=== PATIENT | male | born 1980 | race Caucasian/White ===

== ENCOUNTER 2017-05-08 14:03 | Emergency (ER) | payer MEDICAID ==
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
[~2017-05-08 14:03] MED LIST: ASPIRIN81 M1 PO; ATIVAN PO; BAYER ASPIRIN325 M1 PO; FLEXERIL10 MG PO; KEFLEX500 MG PO; LORTAB 5-325 M1 EACH PO; NICODERM C1 PATCH .1 TD; NO MEDICATIONS; OMEPRAZOLE40 MG PO; PHENERGAN25 MG PO; PREDNISONE10 MG/DOSE PO; VIBRAMYCIN100 M1 PO; VOLTAREN50 MG PO; ZOFRAN ODT4 MG PO
[2017-05-08] MEDS ORDERED: NO MEDICATIONS (17:01)
== END 2017-05-08 20:05 | disposition home or self-care (01) ==
LOC: CED 14:03
DX: S02.612A Fracture of condylar process of left mandible, initial encounter for closed fracture (principal); S02.2XXA Fracture of nasal bones, initial encounter for closed fracture; F17.200 Nicotine dependence, unspecified, uncomplicated; Y04.2XXA Assault by strike against or bumped into by another person, initial encounter; Y92.9 Unspecified place or not applicable
CPT/HCPCS: 70486; 96360; 99284

== ENCOUNTER 2017-07-19 17:30 | Emergency (ER) | payer OTHER ==
[~2017-07-19] VITALS: Ht 175.3 cm; Wt 72.6 kg
--- NOTE | ~2017-07-19 | CT57 ---
[facility] A Service of [facility] RADIOLOGY TEXT RESULTS PATIENT: TING MCCRAY LOCATION: [facility] : 76 UNIT #: [id number] AGE: [address]: Sumit Hull MD SEX: M ORDER DR: [id number] [facility] [address] [place], [place] [address] [id number] E MR#: [id number] Acc #: [id number] NAME: TING MCCRAY. : 1980 SEX: M STUDY DATE/TIME: 07/19/2017 18:13 UNIT: [facility] ROOM: STUDY DESCRIPTION: CT Chest Wo Cont Attending Physician: Sumit Hull M.D. Ordering Physician: Sumit Hull M.D. Primary Care Physician: Primary Care Physician No MEDICAL IMAGING REPORT This report is preliminary unless electronic signature is present EXAM CT chest without contrast HISTORY Left side chest pain after fall 3 days ago. TECHNIQUE This CT exam was performed with one or more of the following radiation dose reduction techniques: automatic exposure control, adjustment of mA and/or kV according to patient size, and iterative reconstruction. FINDINGS CT chest without contrast demonstrates mild linear atelectasis posterior left lower lobe and mild linear atelectasis or scarring and a small cyst in the right lung apex. Mild dilatation of the ascending thoracic aorta measuring 3.8 cm. No adenopathy. Acute nondisplaced fractures of the posteromedial left tenth and eleventh ribs and acute fractures of the lateral eleventh and twelfth ribs, which are displaced up to 5 mm. Old lateral lower right rib fractures. No pleural effusion. No pneumothorax. IMPRESSION 1. Acute fractures of the posterior left tenth, eleventh and twelfth ribs. 2. No pneumothorax. 3. Mild linear atelectasis posterior left lower lobe. 4. Minimal linear scarring and a small incidental lung cyst in the right apex. 5. Mild dilatation of the ascending thoracic aorta measuring 3.8 cm. 6. Old lateral lower right rib fractures. Dictated by... Joby Kulkarni M.D. [facility] A Service of [facility] RADIOLOGY TEXT RESULTS PATIENT: TING MCCRAY LOCATION: [facility] : 76 UNIT #: [id number] AGE: [address]: Sumit Hull MD SEX: M ORDER DR: THIS IS AN ELECTRONICALLY VERIFIED REPORT Joby Kulkarni M.D. at 07/20/2017 10:40 PM Lara TD: 07/20/2017 16:36 JOB #: [id number] MEDICAL IMAGING REPORT Page 1 of 1 COPY
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
[2017-07-19 19:13] LABS: BASOPHIL% 0.9 % (0-2.5); EOSINOPHIL% 1.2 % (0.0-7.0); HEMATOCRIT 42.5 % (38.0-50.0); HEMOGLOBIN 14.1 gm/dL (13.0-16.0); LYMPHOCYTE# 1.2 X10e3 (1.0-3.5); LYMPHOCYTE% 28.5 % (17.0-45.0); MEAN CELL VOLUME 101.7 FL (83-96); MEAN CORPUSCULAR HEMOGLOBIN 33.7 PG (28-34); MEAN CORPUSCULAR HGB CONC 33.2 g/dL (30-36); MEAN PLATELET VOLUME 8.1 FL (6.5-11.5); MONOCYTE# 0.5 X10e3 (0-1.0); MONOCYTE% 11.8 % (3.0-12.0); NEUTROPHIL# 2.4 X10e3 (1.5-7.1); NEUTROPHIL% 57.6 % (40-75); PLATELET COUNT 197 X10e3 (140-420); RED BLOOD COUNT 4.18 X10e (3.90-5.60); RED CELL DISTRIBUTION WIDTH 12.5 % (11.0-15.5); WHITE BLOOD COUNT 4.1 X10e3 (4.0-10.5)
[2017-07-19 19:27] LABS: DIFF IND NO
[2017-07-19 19:35] LABS: ALBUMIN SERUM 4.1 g/dL (3.5-5.0); BILIRUBIN, DIRECT 0.1 mg/dL (0.0-0.2); BILIRUBIN,INDIRECT 0.8 mg/dL (0.0-0.9); BILIRUBIN,TOTAL 0.9 mg/dL (0.2-2.0); CALCIUM SERUM 9.3 mg/dL (8.4-10.2); CREATININE SERUM 0.5 mg/dL (0.6-1.4); GLOM FILT RATE Estimated 137.5 mL/min (>60); POTASSIUM 3.5 mmol/L (3.5-5.1); PROTEIN TOTAL SERUM 7.2 g/dL (6.0-8.3)
== END 2017-07-19 19:51 | disposition home or self-care (01) ==
LOC: CED 17:30
PROVIDERS: Emergency Medicine
DX: S22.42XA Multiple fractures of ribs, left side, initial encounter for closed fracture (principal); I10 Essential (primary) hypertension; F17.200 Nicotine dependence, unspecified, uncomplicated; W18.30XA Fall on same level, unspecified, initial encounter
CPT/HCPCS: 36415; 71250; 74176; 80048; 80076; 83690; 85025; 96361; 96374; 99285; J2270